=== PATIENT | male | born 1995 | race Caucasian/White ===

== ENCOUNTER 2016-06-16 16:44 | Emergency (ER) | payer OTHER ==
[~2016-06-16] VITALS: Ht 188 cm; Wt 107.0 kg
[2016-06-16] MEDS ORDERED: BACITRACIN OINTMENT 0.9 GM PACKET TOP ONE (17:10)
--- NOTE | 2016-06-16 17:37 | NUR ---
PT DECIDES SPLINT IS TOO BULKY & WANTS IT REMOVED. STATES HE WILL KEEP IT IN CASE HE CHANGES HIS MIND. SAME REMOVED. CL
[2016-06-16 20:05] VITALS: BP 116/63
== END 2016-06-16 17:47 | disposition home or self-care (01) ==
LOC: ED 16:52
DX: S61.215A Laceration without foreign body of left ring finger without damage to nail, initial encounter (principal); W26.8XXA Contact with other sharp object(s), not elsewhere classified, initial encounter; Y92.215 Trade school as the place of occurrence of the external cause
CPT/HCPCS: 99282; 99283